=== PATIENT | male | born 1935 | race Caucasian/White ===

== ENCOUNTER 2018-08-10 21:01 | Emergency (ER) | payer MEDICARE ==
[~2018-08-10] VITALS: Ht 188 cm; Wt 120.2 kg
--- OUTSIDE RECORDS SUMMARY | 2018-08-10 21:08 | XMS REPORT | Continuity of Care Document ---
Author Organization Unknown Address Unknown Allergies There is no data. Medications There is no data. Problems There is no data. Procedures There is no data. Results There is no data. Encounters ACCT No. Visit Date/Time Discharge Status Pt. Type Provider Facility Loc./Unit Complaint [id number] 08/09/2018 10:00:00 [facility]
[2018-08-10] MEDS ORDERED: AMOX-358 PO (21:28)
--- NOTE | 2018-08-10 21:29 | ED Integumentary General ---
General Chief Complaint: Skin/Wound Problems Stated Complaint: RIGHT QUEZADA SWOLLEN Source: patient Exam Limitations: no limitations History of Present Illness Date Seen by Provider: Aug 10, 2018 Time Seen by Provider: 21:24 Initial Comments Chronic scab and redness to the right anterior mid lower leg. This has been present since 2010. It became more red and somewhat tender today. No systemic symptoms such as fevers or chills. This is confined to the anterior leg, nothing posterior. States that he had this once before, they called cellulitis" he was treated with antibiotics and states that he got better. Timing/Duration: constant Severity: moderate Location: none Possible Cause: no cause identified Associated Symptoms: denies symptoms Allergies and Home Medications Allergies Coded Allergies: Sulfa (Sulfonamide Antibiotics) (Verified Allergy, Unknown, 08/10/18) Home Medications Amoxicillin/Potassium Clav 1 Each Tablet, 1 EACH PO BID Prescribed by: CLARA HALL on 08/10/182127 Patient Home Medication List Home Medication List Reviewed: Yes Review of Systems Review of Systems Constitutional: see HPI; No chills, No fever EENTM: see HPI Respiratory: no symptoms reported Cardiovascular: no symptoms reported Genitourinary: no symptoms reported Musculoskeletal: no symptoms reported Skin: see HPI Psychiatric/Neurological: No Symptoms Reported Endocrine: No Symptoms Reported Hematologic/Lymphatic: No Symptoms Reported Past Vrmgyic-Fldvsg-Tbufkw Hx Patient Social History Alcohol Use: Denies Use Recreational Drug Use: No Smoking Status: Never a Smoker Recent Foreign Travel: No Contact w/Someone Who Travel: No Recent Hopitalizations: No Seasonal Allergies Seasonal Allergies: No Past Medical History Surgeries: No Respiratory: Yes Cardiac: No Neurological: No Genitourinary: No Gastrointestinal: No Musculoskeletal: No Endocrine: No HEENT: No Cancer: No Psychosocial: No Integumentary: No Physical Exam Vital Signs Vital Signs - First Documented 08/10/18 08/10/18 21:21 21:54 Temp 98.1 Pulse 75 Resp 18 B/P (MAP) 172/87 (115) Pulse Ox 99 Capillary Refill : General Appearance: WD/WN, no apparent distress HEENT: PERRL/EOMI, normal ENT inspection Respiratory: no respiratory distress, no accessory muscle use Extremities: normal range of motion, non-tender, other (to the right anterior lower leg is a quarter sized area of scab without any open wounds or drainage, no fluctuance. Surrounding this is an area of slight erythema extending down the anteromedial right leg) Neurologic/Psychiatric: alert, normal mood/affect, oriented x 3 Skin: normal color, warm/dry Skin Problem Character: erythema Progress/Results/Core Measures Results/Orders My Orders Orders - CLARA HALL APRN Ceftriaxone For Im Use (Rocephin For Im (08/10/18 21:30) Lidocaine 1% Inj 20 Ml (Xylocaine 1% Inj (08/10/18 21:30) Vital Signs/I&O 08/10/18 08/10/18 21:21 21:54 Temp 98.1 98.1 Pulse 75 75 Resp 18 18 B/P (MAP) 172/87 (115) 172/87 (115) Pulse Ox 99 Departure Impression Primary Impression: Cellulitis Qualified Codes: L03.115 - Cellulitis of right lower limb Disposition: HOME, SELF-CARE Condition: Stable Departure-Patient Inst. Decision time for Depature: 21:27 Referrals: NO,LOCAL PHYSICIAN (PCP/Family) Primary Care Physician Patient Instructions: Cellulitis (Skin Infection), Adult (DC) Add. Discharge Instructions: 1. Return to ER for any fevers or worsening symptoms 2. Go home and elevate the foot as much as possible. He certainly you call your doctor on Sunday to make an appointment to be seen for follow-up. All discharge instructions reviewed with patient and/or family. Voiced understanding. Scripts Amoxicillin/Potassium Clav (Augmentin 875-125 Tablet) 1 Each Tablet 1 EACH PO BID, #14 TAB 0 Refills Prov: CLARA HALL APRN 08/10/18 Images Extremities-Lower 1 - Cellulitis CLARA HALL APRN Aug 10, 2018 21:29
[2018-08-10] MEDS ORDERED: cefTRIAXone 1,000 MG/2.86 ml vial (IM ONLY) IM SCH (21:30)
[2018-08-10] MEDS ORDERED: LIDOCAINE 1% INJ 20 ML 20 ML VIAL INJ ONE (21:30)
[2018-08-10 21:54] VITALS: BP 172/87
== END 2018-08-10 21:54 | disposition home or self-care (01) ==
LOC: ER 21:04
DX: L03.115 Cellulitis of right lower limb (principal); Z88.2 Allergy status to sulfonamides
CPT/HCPCS: 96372; 99284

== ENCOUNTER 2018-08-25 09:29 | Emergency (ER) | payer MEDICARE ==
[~2018-08-25] VITALS: Ht 182.9 cm; Wt 117.9 kg
[~2018-08-25 09:29] MED LIST: AMOX-358 PO
--- OUTSIDE RECORDS SUMMARY | 2018-08-25 09:33 | XMS REPORT | Continuity of Care Document ---
Author Organization Unknown Address Unknown Allergies There is no data. Medications There is no data. Problems There is no data. Procedures There is no data. Results There is no data. Encounters ACCT No. Visit Date/Time Discharge Status Pt. Type Provider Facility Loc./Unit Complaint [id number] 08/16/2018 10:00:00 08/16/2018 23:59:59 C[facility]
[2018-08-25] MEDS ORDERED: MECLIZINE 25 MG (ANTIVERT) TAB PO ONE (10:15)
--- NOTE | 2018-08-25 10:15 | ED Neurological Problem ---
General Chief Complaint: Dizziness/Syncope Stated Complaint: DIZZY Nursing Triage Note: PT BROUGHT IN BY EMS FROM HOME WITH COMPLAIN OF DIZZINESS. PT STATES HE WOKE UP WITH DIZZINESS THIS AM. Nursing Sepsis Screen: No Definite Risk Source: patient Exam Limitations: no limitations History of Present Illness Date Seen by Provider: Aug 25, 2018 Time Seen by Provider: 09:45 Initial Comments Patient presents to ER by EMS with chief complaint that he got up to go the bathroom and was walking down the barber and felt his balance was off and that the room was moving. He did not fall nor strike his head. He says had this several times at his life and the past that gave him a tablet until it is in her ear dysfunction. No history of stroke, blood thinners. No weakness numbness tingling slurred speech facial droop. His plan was to go to [place] today and he is daughter but he does not feel like he could drive and is why he called EMS. He does have a history of multiple myeloma status post chemotherapy. 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 No cough shortness of breath fever chills nausea vomiting diarrhea or constipation. He has a history of chronic neck pain. Allergies and Home Medications Allergies Coded Allergies: Sulfa (Sulfonamide Antibiotics) (Verified Allergy, Unknown, 08/10/18) Home Medications Amoxicillin/Potassium Clav 1 Each Tablet, 1 EACH PO BID Prescribed by: CLARA HALL on 08/10/181 Patient Home Medication List Home Medication List Reviewed: Yes Review of Systems Review of Systems Constitutional: No chills, No diaphoresis Eyes: Denies Blindness, Denies Blurred Vision Ears, Nose, Mouth, Throat: denies ear pain, denies ear discharge Respiratory: No cough, No short of breath Cardiovascular: No chest pain, No edema Gastrointestinal: No abdominal pain, No nausea Genitourinary: No discharge, No dysuria Past Obtqfvn-Ztyvet-Juzqxz Hx Patient Social History Alcohol Use: Denies Use Recreational Drug Use: No Smoking Status: Former Smoker Recent Foreign Travel: No Contact w/Someone Who Travel: No Recent Infectious Disease Expo: No Recent Hopitalizations: No Immunizations Up To Date Tetanus Booster (TDap): Unknown Seasonal Allergies Seasonal Allergies: No Past Medical History Surgeries: No Respiratory: Yes (INTERSTITAL LUNG DISEASE) Cardiac: Yes Hypertension Neurological: No Genitourinary: No Gastrointestinal: No Musculoskeletal: No Endocrine: No HEENT: No Cancer: Yes (MULTIPLE MYELOMA) Psychosocial: No Integumentary: No Physical Exam Vital Signs Vital Signs - First Documented 08/25/18 09:29 Temp 97.1 Pulse 75 Resp 16 B/P (MAP) 178/83 (114) Pulse Ox 98 O2 Delivery Room Air Capillary Refill : Less Than 3 Seconds Height, Weight, BMI Height: 6'0" Weight: 260lbs. oz. 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 tested, no motor/sensory deficits, alert, normal mood/affect, oriented x 3, other (NIH 0) Crainal Nerves: normal hearing, normal speech, PERRL, other (head impulse, test of skew and nystagmus negative) Motor/Sensory: no motor deficit, no sensory deficit, no pronator drift Skin: normal color, warm/dry Progress/Results/Core Measures Results/Orders Lab Results Laboratory Tests Test 08/25/18 09:40 Range/Units White Blood Count 7.5 4.3-11.0 10^3/uL Red Blood Count 4.11 L 4.35-5.85 10^6/uL Hemoglobin 12.2 L 13.3-17.7 G/DL Hematocrit 38 L 40-54 % Mean Corpuscular Volume 93 80-99 FL Mean Corpuscular Hemoglobin 30 25-34 PG Mean Corpuscular Hemoglobin Concent 32 32-36 G/DL Red Cell Distribution Width 14.3 10.0-14.5 % Platelet Count 215 130-400 10^3/uL Mean Platelet Volume 11.1 H 7.4-10.4 FL Neutrophils (%) (Auto) 71 42-75 % Lymphocytes (%) (Auto) 16 12-44 % Monocytes (%) (Auto) 8 0-12 % Eosinophils (%) (Auto) 4 0-10 % Basophils (%) (Auto) 1 0-10 % Neutrophils # (Auto) 5.3 1.8-7.8 X 10^3 Lymphocytes # (Auto) 1.2 1.0-4.0 X 10^3 Monocytes # (Auto) 0.6 0.0-1.0 X 10^3 Eosinophils # (Auto) 0.3 0.0-0.3 10^3/uL Basophils # (Auto) 0.0 0.0-0.1 10^3/uL Sodium Level 140 135-145 MMOL/L Potassium Level 3.7 3.6-5.0 MMOL/L Chloride Level 107 98-107 MMOL/L Carbon Dioxide Level 25 21-32 MMOL/L Anion Gap 8 5-14 MMOL/L Blood Urea Nitrogen 15 7-18 MG/DL Creatinine 0.78 0.60-1.30 MG/DL Estimat Glomerular Filtration Rate > 60 BUN/Creatinine Ratio 19 Glucose Level 151 H 70-105 MG/DL Calcium Level 8.8 8.5-10.1 MG/DL Corrected Calcium 9.0 8.5-10.1 MG/DL Total Bilirubin 0.6 0.1-1.0 MG/DL Aspartate Amino Transf (AST/SGOT) 11 5-34 U/L Alanine Aminotransferase (ALT/SGPT) 12 0-55 U/L Alkaline Phosphatase 54 40-136 U/L C-Reactive Protein High Sensitivity 0.72 H 0.00-0.50 MG/DL Total Protein 7.3 6.4-8.2 GM/DL Albumin 3.7 3.2-4.5 GM/DL My Orders Orders - ABNER PHELAN Ekg Tracing (08/25/18 10:05) Meclizine Tablet (Antivert Tablet) (08/25/18 10:15) Cbc With Automated Diff (08/25/18 10:24) Comprehensive Metabolic Panel (08/25/18 10:24) Hs C Reactive Protein (08/25/18 10:24) Medications Given in ED Current Medications Medications Dose Ordered Sig/Dao Route Start Time Stop Time Status Last Admin Dose Admin Meclizine HCl 25 mg ONCE ONCE PO 08/25/18 10:15 08/25/18 10:16 DC 08/25/18 10:15 25 MG Vital Signs/I&O 08/25/18 09:29 Temp 97.1 Pulse 75 Resp 16 B/P (MAP) 178/83 (114) Pulse Ox 98 O2 Delivery Room Air Blood Pressure Mean: 114 Progress Progress Note #1: Time: 10:19 Progress Note Carmelita-Hallpike was positive for re-creates his symptoms on the right side, Not on the left. Plan is to give meclizine and see if his symptoms improve almost to go home. We will teach him some Tj's maneuvers. If we cannot get his symptoms under control then we may consider an observation stay. To that end we'll obtain some basic labs EKG. Progress Note #2: Time: 11:10 Progress Note The patient has experienced moderate improvement in his symptoms after the meclizine. He does not feel like he needs to stay in the hospital and would like to try and go home. He's going to work on a ride. We'll provide him a prescription and encourage him to follow-up with primary care for outpatient management. The patient says he has an appointment at pending [facility] to [facility] to establish care but has not been seen yet. Initial ECG Impression Date: Aug 25, 2018 Initial ECG Impression Time: 09:37 Initial ECG Rate: 77 Initial ECG Rhythm: Normal Sinus Initial ECG Intervals: Normal Initial ECG Impression: Normal Comment No ST elevation or depression. Departure Impression Primary Impression: Benign paroxysmal positional vertigo of right ear Disposition: 01 HOME, SELF-CARE Condition: Stable Departure-Patient Inst. Decision time for Depature: 11:11 Referrals: NO,LOCAL PHYSICIAN (PCP/Family) Primary Care Physician Patient Instructions: Vertigo (a Type of Dizziness) (DC), Vestibular Exercises Add. Discharge Instructions: Every time you feel dizziness you should do 10 sets of the Tj's maneuvers as outlined in the handout. You may also take a tablet of meclizine every 6 hours as needed for dizziness. Follow-up with primary care for continued outpatient management. All discharge instructions reviewed with patient and/or family. Voiced understanding. Scripts Meclizine HCl (Meclizine HCl) 25 Mg Tablet 25 MG PO Q6H PRN for DIZZINESS, #20 TAB 0 Refills Prov: ABNER PHELAN 08/25/18 ABNER PHELAN Aug 25, 2018 10:15
[2018-08-25 10:39] LABS: BASOPHILS % (AUTO) 1 % (0-10); EOSINOPHILS # (AUTO) 0.3 10^3/uL (0.0-0.3); EOSINOPHILS % (AUTO) 4 % (0-10); HEMATOCRIT 38 % (40-54); HEMOGLOBIN 12.2 G/DL (13.3-17.7); LYMPHOCYTES # (AUTO) 1.2 X 10^3 (1.0-4.0); LYMPHOCYTES % (AUTO) 16 % (12-44); MEAN CORPUSCULAR HEMOGLOBIN 30 PG (25-34); MEAN CORPUSCULAR HGB CONC 32 G/DL (32-36); MEAN CORPUSCULAR VOLUME 93 FL (80-99); MEAN PLATELET VOLUME 11.1 FL (7.4-10.4); MONOCYTES # (AUTO) 0.6 X 10^3 (0.0-1.0); MONOCYTES % (AUTO) 8 % (0-12); NEUTROPHILS # (AUTO) 5.3 X 10^3 (1.8-7.8); NEUTROPHILS % (AUTO) 71 % (42-75); PLATELET COUNT 215 10^3/uL (130-400); RED CELL DISTRIBUTION WIDTH 14.3 % (10.0-14.5); WHITE BLOOD COUNT 7.5 10^3/uL (4.3-11.0)
[2018-08-25 10:53] LABS: ALANINE AMINOTRANSFERASE 12 U/L (0-55); ALBUMIN 3.7 GM/DL (3.2-4.5); ALKALINE PHOSPHATASE 54 U/L (40-136); BILIRUBIN,TOTAL 0.6 MG/DL (0.1-1.0); BUN/CREATININE RATIO 19; CALCIUM 8.8 MG/DL (8.5-10.1); CARBON DIOXIDE 25 MMOL/L (21-32); CHLORIDE 107 MMOL/L (98-107); CREATININE SERUM 0.78 MG/DL (0.60-1.30); GFR ESTIMATED > 60; GLUCOSE 151 MG/DL (70-105); POTASSIUM 3.7 MMOL/L (3.6-5.0); SODIUM 140 MMOL/L (135-145); TOTAL PROTEIN 7.3 GM/DL (6.4-8.2)
[2018-08-25] MEDS ORDERED: MECL-106 PO (11:19)
[2018-08-25 11:33] VITALS: BP 144/110
== END 2018-08-25 11:34 | disposition home or self-care (01) ==
LOC: EDUNIT# 09:29 → ER 09:30
DX: H81.11 Benign paroxysmal vertigo, right ear (principal); I10 Essential (primary) hypertension; Z87.891 Personal history of nicotine dependence; Z88.2 Allergy status to sulfonamides; Z85.820 Personal history of malignant melanoma of skin; Z85.828 Personal history of other malignant neoplasm of skin
CPT/HCPCS: 36415; 80053; 85025; 86141; 93005

== ENCOUNTER 2018-09-18 09:02 | Emergency (ER) | payer MEDICARE ==
[~2018-09-18] VITALS: Ht 190.5 cm; Wt 99.8 kg
[~2018-09-18 09:02] MED LIST changes: +MECL-106 PO
--- OUTSIDE RECORDS SUMMARY | 2018-09-18 09:06 | XMS REPORT | Continuity of Care Document ---
Author Organization Unknown Address Unknown Allergies There is no data. Medications There is no data. Problems There is no data. Procedures There is no data. Results There is no data. Encounters ACCT No. Visit Date/Time Discharge Status Pt. Type Provider Facility Loc./Unit Complaint [id number] 09/04/2018 11:00:00 09/04/2018 23:59:59 CLS Outpatient JILLIAN VELA LAC [facility]
[2018-09-18] MEDS ORDERED: NF-CIPDEC LEFT EAR (09:29)
--- NOTE | 2018-09-18 09:32 | ED EENT ---
History of Present Illness General Chief Complaint: Ear Problems Stated Complaint: BLOOD IN L EAR Nursing Triage Note: Pt ambulates to Rm 5 with reports of a scant amount of bloody discharge from left ear. Pt reports this started last night when he was cleaning his ear with a paper clip. Pt denies any pain in that ear at this time. Source: patient Exam Limitations: no limitations History of Present Illness Date Seen by Provider: Sep 18, 2018 Time Seen by Provider: 09:08 Initial Comments This 83-year-old gentleman presents to the emergency room with complaints of left ear pain and bleeding from the left ear after he attempted to remove a cerumen impaction with a paper clip. He suffers from cerumen impaction often. He reports he used the loop of the paper clip and not sharp and. Nonetheless he has caused trauma to his ear. He has no local provider and is transient at this time. He is presently living in a hotel. Allergies and Home Medications Allergies Coded Allergies: Sulfa (Sulfonamide Antibiotics) (Verified Allergy, Unknown, 08/10/18) Home Medications Amoxicillin/Potassium Clav 1 Each Tablet, 1 EACH PO BID Prescribed by: CLARA HALL on 08/10/182127 Ciprofloxacin HCl/Dexameth 7.5 Ml Soln, 4 DROPS LEFT EAR BID Prescribed by: MARY GOEL on 09/18/18 0929 Meclizine HCl 25 Mg Tablet, 25 MG PO Q6H PRN for DIZZINESS Prescribed by: ABNER PHELAN on 08/25/18 1119 Patient Home Medication List Home Medication List Reviewed: Yes Review of Systems Review of Systems Constitutional: no symptoms reported Eyes: No Symptoms Reported Ears: See HPI Nose: no symptoms reported Mouth: no symptoms reported Throat: no symptoms reported Respiratory: no symptoms reported Cardiovascular: no symptoms reported Gastrointestinal: no symptoms reported Musculoskeletal: no symptoms reported Skin: no symptoms reported Neurological: No Symptoms Reported Past Weiaxlp-Butimu-Bjbqrs Hx Past Med/Social Hx: Reviewed Nursing Past Med/Soc Hx Patient Social History Alcohol Use: Denies Use Recreational Drug Use: No Smoking Status: Never a Smoker Recent Foreign Travel: No Contact w/Someone Who Travel: No Recent Infectious Disease Expo: No Recent Hopitalizations: No Physical Abuse: No Sexual Abuse: No Mistreated: No Fear: No Immunizations Up To Date Tetanus Booster (TDap): Unknown Seasonal Allergies Seasonal Allergies: No Past Medical History Surgeries: No Respiratory: Yes (INTERSTITAL LUNG DISEASE, wears supplemental oxygen) Cardiac: Yes Hypertension Neurological: No Genitourinary: No Gastrointestinal: No Musculoskeletal: No Endocrine: No HEENT: No Cancer: Yes (MULTIPLE MYELOMA) Psychosocial: No Integumentary: No Physical Exam Vital Signs Vital Signs - First Documented 09/18/18 09:02 Temp 97.3 Pulse 89 Resp 18 B/P (MAP) 92/ Pulse Ox 97 O2 Delivery Nasal Cannula O2 Flow Rate 187.00 Height, Weight, BMI Height: 6'3.00" Weight: 220lbs. oz. 99.806854dg; BMI Method:Stated General Appearance: WD/WN, no apparent distress Eyes: bilateral eye normal inspection, bilateral eye PERRL, bilateral eye EOMI Ears: bilateral ear other (cerumen impaction bilaterally. Left ear canal is edematous and erythematous with a small abrasion on the posterior aspect that is no longer bleeding. 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 He requested assistance in setting up a follow-up appointment. I scheduled an appointment for him at Dr. Griffin's office. See discharge instructions. Departure Impression Primary Impression: Trauma of ear canal Qualified Codes: S09.91XA - Unspecified injury of ear, initial encounter Additional Impressions: Otitis externa of left ear Qualified Codes: H60.502 - Unspecified acute noninfective otitis externa, left ear Impacted cerumen of left ear Disposition: 01 HOME, SELF-CARE Condition: Improved Departure-Patient Inst. Referrals: DOMO GRIFFIN MD [facility]/JANEEN MIGUEL MD NO,LOCAL PHYSICIAN (PCP) Primary Care Physician TRISHA PACE MD Patient Instructions: Ear Wax Impaction Add. Discharge Instructions: Use the Ciprodex eardrops as prescribed. Lay on your right side with your left ear up when applying the ear drops. Stay in this position for at least 5 minutes to allow the drops to soak into your ear. Return to care if you have worsening symptoms. Follow-up in Dr. Griffin's office (ear, nose and throat clinic) on September 25 at 9:45 in the morning. Please call their office to confirm the appointment. All discharge instructions reviewed with patient and/or family. Voiced understanding. Scripts Ciprofloxacin HCl/Dexameth (Ciprodex Otic Suspension) 7.5 Ml Soln 4 DROPS LEFT EAR BID, #1 EA Prov: MARY SHERMAN MD 09/18/18 Copy Copies To 1: DOMO GRIFFIN MD, JOSHUA T MD Sep 18, 2018 09:32
[2018-09-18 09:45] VITALS: BP 86/86
== END 2018-09-18 09:40 | disposition home or self-care (01) ==
LOC: EDUNIT# 09:02 → ER 09:03
DX: S09.92XA Unspecified injury of nose, initial encounter (principal); H60.92 Unspecified otitis externa, left ear; H61.22 Impacted cerumen, left ear; I10 Essential (primary) hypertension; Z85.79 Personal history of other malignant neoplasms of lymphoid, hematopoietic and related tissues; Z99.81 Dependence on supplemental oxygen; Z88.2 Allergy status to sulfonamides; W26.8XXA Contact with other sharp object(s), not elsewhere classified, initial encounter; Y92.59 Other trade areas as the place of occurrence of the external cause
CPT/HCPCS: 99282

== ENCOUNTER 2018-11-12 09:19 | Emergency (ER) | payer MEDICARE ==
[~2018-11-12] VITALS: Ht 185.4 cm; Wt 122.7 kg
[~2018-11-12 09:19] MED LIST changes: +NF-CIPDEC LEFT EAR
[2018-11-12] MEDS ORDERED: AMLO5TAB9 (09:48)
[2018-11-12] MEDS ORDERED: OXYC15TA73 (09:49)
[2018-11-12] MEDS ORDERED: NS IV 500 ML 500 ML IV ONE (10:14)
--- NOTE | 2018-11-12 10:32 | ED Back Pain ---
General Chief Complaint: Back Problems Stated Complaint: LOWER BACK PAIN Nursing Triage Note: C/O LOW BACK PAINX 1WEEK NO INJURY REPORTS THAT OXYCONTIN NOT HELPING Nursing Sepsis Screen: No Definite Risk Source of Information: Patient Exam Limitations: No Limitations (MARY MELO STUDENT) History of Present Illness Date Seen by Provider: Nov 12, 2018 Time Seen by Provider: 10:00 Initial Comments The patient is an 83 y/o male here with a chief complaint of low back pain. He states that the pain began about a week ago and has not improved. He reports that the pain is 7-8/10, sharp and is increased with movement. He admits to difficulty with urination which he said is chronic. He does admit to decreased urine output lately. He denies any nausea, vomiting, or fevers. He denies any abdominal pain. The patient reports a history of multiple myeloma which is stable since 2009. The patient also reports a history of chronic constipation but states that he had a bowel movement yesterday. Timing/Duration: 6-7 Days Severity: Moderate Pain/Injury Location: Back Method of Injury: Unknown Modifying Factors: Worse With Movement (MARY MELO STUDENT) Location: Paraspinous Muscles Timing/Duration: 6-7 Days Severity: Moderate Pain/Injury Location: Back Associated Symptoms: muscle spasms; No fever, No weakness; lower back pain; No loss of bladder control, No loss of bowel control (RENA PARRY MD) Allergies and Home Medications Allergies Coded Allergies: Sulfa (Sulfonamide Antibiotics) (Verified Allergy, Unknown, 08/10/18) Home Medications Meclizine HCl 25 Mg Tablet, 25 MG PO Q6H PRN for DIZZINESS Prescribed by: ABNER PHELAN on 08/25/18 1119 Patient Home Medication List Home Medication List Reviewed: Yes (RENA PARRY MD) Review of Systems Constitutional: No fever, No malaise EENTM: No blurred vision, No double vision Respiratory: No cough, No short of breath Cardiovascular: No chest pain, No palpitations Genitourinary: decreased output, hesitancy Musculoskeletal: back pain (MARY MELO STUDENT) All Other Systems Reviewed Negative Unless Noted: Yes (RENA PARRY MD) Past Imdhdmk-Ibxtoj-Ikyino Hx Past Med/Social Hx: Reviewed Nursing Past Med/Soc Hx (RENA PARRY MD) Patient Social History Alcohol Use: Denies Use Recreational Drug Use: No Recent Foreign Travel: No Contact w/Someone Who Travel: No Recent Infectious Disease Expo: No Recent Hopitalizations: No (MARY MELO STUDENT) Immunizations Up To Date Tetanus Booster (TDap): Unknown (MARY MELO STUDENT) Seasonal Allergies Seasonal Allergies: No (MARY MELO) Past Medical History Surgeries: Yes Eye Surgery, Orthopedic Respiratory: Yes (INTERSTITAL LUNG DISEASE, wears supplemental oxygen) Cardiac: Yes Hypertension Neurological: No Genitourinary: No Gastrointestinal: No Musculoskeletal: No Endocrine: No HEENT: No Cancer: Yes (MULTIPLE MYELOMA) Did You Recieve Any Treatments: Yes What Type of Treatment Did You: Chemotherapy, Radiation Psychosocial: No Integumentary: No (MARY MELO STUDENT) Family Medical History Reviewed Nursing Family Hx (RENA PARRY MD) No Pertinent Family Hx (RENA PARRY MD) Physical Exam Vital Signs Vital Signs - First Documented 11/12/18 09:22 Temp 37.2 Pulse 78 Resp 18 B/P (MAP) 162/73 (102) Pulse Ox 96 O2 Delivery Room Air (RENA PARRY MD) Vital Signs Capillary Refill : Less Than 3 Seconds (MARY MELO STUDENT) Height, Weight, BMI Height: 6'3.00" Weight: 220lbs. oz. 99.994297bx; 35.00 BMI Method:Stated General Appearance: No Apparent Distress, WD/WN Cardiovascular: Regular Rate, Rhythm, No Edema, Systolic Murmur Respiratory: Chest Non Tender, Lungs Clear, Normal Breath Sounds Back: CVA Tenderness (R) Neurologic/Psychiatric: Alert, Oriented x3, No Motor/Sensory Deficits Skin: Normal Color (MARY MELO STUDENT) General Appearance: No Apparent Distress, WD/WN Cardiovascular: Regular Rate, Rhythm, No Edema Respiratory: Lungs Clear, Normal Breath Sounds Back: No Vertebral Tenderness; Other (right side paraspinous pain) Neurologic/Psychiatric: Alert, Oriented x3 Skin: Normal Color, Warm/Dry (RENA PARRY MD) Progress/Results/Core Measures Results/Orders Lab Results Laboratory Tests Test 11/12/18 10:19 Range/Units White Blood Count 5.3 4.3-11.0 10^3/uL Red Blood Count 4.22 L 4.35-5.85 10^6/uL Hemoglobin 12.7 L 13.3-17.7 G/DL Hematocrit 40 40-54 % Mean Corpuscular Volume 95 80-99 FL Mean Corpuscular Hemoglobin 30 25-34 PG Mean Corpuscular Hemoglobin Concent 32 32-36 G/DL Red Cell Distribution Width 14.2 10.0-14.5 % Platelet Count 164 130-400 10^3/uL Mean Platelet Volume 9.8 7.4-10.4 FL Neutrophils (%) (Auto) 70 42-75 % Lymphocytes (%) (Auto) 17 12-44 % Monocytes (%) (Auto) 8 0-12 % Eosinophils (%) (Auto) 4 0-10 % Basophils (%) (Auto) 1 0-10 % Neutrophils # (Auto) 3.7 1.8-7.8 X 10^3 Lymphocytes # (Auto) 0.9 L 1.0-4.0 X 10^3 Monocytes # (Auto) 0.4 0.0-1.0 X 10^3 Eosinophils # (Auto) 0.2 0.0-0.3 10^3/uL Basophils # (Auto) 0.1 0.0-0.1 10^3/uL Urine Color YELLOW Urine Clarity SLIGHTLY CLOUDY Urine pH 5 5-9 Urine Specific [place] 1.025 H 1.016-1.022 Urine Protein 2+ H NEGATIVE Urine Glucose (UA) NEGATIVE NEGATIVE Urine Ketones NEGATIVE NEGATIVE Urine Nitrite NEGATIVE NEGATIVE Urine Bilirubin NEGATIVE NEGATIVE Urine Urobilinogen NORMAL NORMAL MG/DL Urine Leukocyte Esterase NEGATIVE NEGATIVE Urine RBC (Auto) NEGATIVE NEGATIVE Urine RBC NONE /HPF Urine WBC NONE /HPF Urine Squamous Epithelial Cells NONE /HPF Urine Crystals PRESENT H /LPF Urine Calcium Oxalate Crystals FEW H /LPF Urine Bacteria NEGATIVE /HPF Urine Casts NONE /LPF Urine Mucus NEGATIVE /LPF Urine Culture Indicated NO Sodium Level 142 135-145 MMOL/L Potassium Level 3.9 3.6-5.0 MMOL/L Chloride Level 109 H 98-107 MMOL/L Carbon Dioxide Level 26 21-32 MMOL/L Anion Gap 7 5-14 MMOL/L Blood Urea Nitrogen 24 H 7-18 MG/DL Creatinine 0.88 0.60-1.30 MG/DL Estimat Glomerular Filtration Rate > 60 BUN/Creatinine Ratio 27 Glucose Level 158 H 70-105 MG/DL Calcium Level 8.6 8.5-10.1 MG/DL Corrected Calcium 8.8 8.5-10.1 MG/DL Total Bilirubin 0.4 0.1-1.0 MG/DL Aspartate Amino Transf (AST/SGOT) 12 5-34 U/L Alanine Aminotransferase (ALT/SGPT) 11 0-55 U/L Alkaline Phosphatase 50 40-136 U/L C-Reactive Protein High Sensitivity 0.43 0.00-0.50 MG/DL Total Protein 7.1 6.4-8.2 GM/DL Albumin 3.7 3.2-4.5 GM/DL (RENA PARRY MD) My Orders Orders - RENA PARRY MD Ed Iv/Invasive Line Start (11/12/18 10:14) Ns Iv 500 Ml (Sodium Chloride 0.9%) (11/12/18 10:14) Cbc With Automated Diff (11/12/18 10:21) Comprehensive Metabolic Panel (11/12/18 10:21) Hs C Reactive Protein (11/12/18 10:21) Ua Culture If Indicated (11/12/18 10:21) Ct Abdomen/Pelvis Wo (11/12/18 12:02) Hydrocodone/Apap 7.5/325 Tab (Lortab 7. (11/12/18 15:10) Ketorolac Injection (Toradol Injection) (11/12/18 15:10) (RENA PARRY MD) Medications Given in ED Current Medications Medications Dose Ordered Sig/Dao Route Start Time Stop Time Status Last Admin Dose Admin Sodium Chloride 500 ml @ 0 mls/hr Q0M ONCE IV 11/12/18 10:14 11/12/18 10:15 DC 11/12/18 10:34 500 MLS/HR (RENA PARRY MD) Vital Signs/I&O 11/12/18 09:22 Temp 37.2 Pulse 78 Resp 18 B/P (MAP) 162/73 (102) Pulse Ox 96 O2 Delivery Room Air (RENA PARRY MD) Blood Pressure Mean: 102 Progress Progress Note : Time: 10:05 Progress Note The patient is resting in mild discomfort in the exam room. Initial lab analysis will consist of CBC, CMP, CRP, and UA. (MARY MELO MED STUDENT) Progress Note : Progress Note I have seen and evaluated the patient and agree with above except as indicated. I Have directed the plan of care. Patient very concerned due to history of multiple myeloma. IV, labs and UA ordered. CT abdomen and pelvis without contrast ordered. Patient initially declined pain medicine. Monitor patient. 1534: CT results reviewed. Toradol 15 mg IV and Lortab 7.5 mg by mouth ordered. Patient now admits that he has been moving and had to do a lot of lifting recently. This seems to be more related to musculoskeletal type pain as everything else seems to be negative at this point. Patient was appreciative of the findings and workup. Discharged home with return precautions. Patient verbalize understanding instructions and agreement with plan. (RENA PARRY MD) Departure Impression Primary Impression: Back strain Qualified Codes: S39.012A - Strain of muscle, fascia and tendon of lower back, initial encounter Disposition: 01 HOME, SELF-CARE Condition: Improved Departure-Patient Inst. Decision time for Depature: 15:35 (RENA PARRY MD) Referrals: NO,LOCAL PHYSICIAN (PCP/Family) Primary Care Physician Patient Instructions: Low Back Pain (DC), Muscle Strain (DC) Add. Discharge Instructions: All discharge instructions reviewed with patient and/or family. Voiced understanding. Continue home medications as previously prescribed. You may take ibuprofen 400 mg every 6-8 hours as needed for pain as well as her typical pain regimen. You may use [id number] Icy Hot with lidocaine patches, Aspercreme with lidocaine patches, Salonpas with lidocaine patches or similar items to area of concern per package directions. Return for worse pain, swelling, weakness, difficulty with walking or going to the bathroom or other concerns as needed. MARY MELO MED STUDENT Nov 12, 2018 10:32 RENA PARRY MD Nov 12, 2018 15:37
[2018-11-12 10:33] LABS: BILIRUBIN,URINE NEGATIVE (NEGATIVE); CLARITY,URINE SLIGHTLY CLOUDY; COLOR,URINE YELLOW; GLUCOSE, URINE (UA) NEGATIVE (NEGATIVE); KETONES,URINE NEGATIVE (NEGATIVE); LEUKOCYTE ESTERASE ,URINE NEGATIVE (NEGATIVE); NITRITE,URINE NEGATIVE (NEGATIVE); PH,URINE 5 (5-9); PROTEIN,URINE 2+ (NEGATIVE); UROBILINOGEN,URINE NORMAL (NORMAL)
[2018-11-12 10:36] LABS: BASOPHILS # (AUTO) 0.1 10^3/uL (0.0-0.1); BASOPHILS % (AUTO) 1 % (0-10); EOSINOPHILS # (AUTO) 0.2 10^3/uL (0.0-0.3); EOSINOPHILS % (AUTO) 4 % (0-10); HEMATOCRIT 40 % (40-54); HEMOGLOBIN 12.7 G/DL (13.3-17.7); LYMPHOCYTES # (AUTO) 0.9 X 10^3 (1.0-4.0); LYMPHOCYTES % (AUTO) 17 % (12-44); MEAN CORPUSCULAR HEMOGLOBIN 30 PG (25-34); MEAN CORPUSCULAR HGB CONC 32 G/DL (32-36); MEAN CORPUSCULAR VOLUME 95 FL (80-99); MEAN PLATELET VOLUME 9.8 FL (7.4-10.4); MONOCYTES # (AUTO) 0.4 X 10^3 (0.0-1.0); MONOCYTES % (AUTO) 8 % (0-12); NEUTROPHILS # (AUTO) 3.7 X 10^3 (1.8-7.8); NEUTROPHILS % (AUTO) 70 % (42-75); PLATELET COUNT 164 10^3/uL (130-400); RED CELL DISTRIBUTION WIDTH 14.2 % (10.0-14.5); WHITE BLOOD COUNT 5.3 10^3/uL (4.3-11.0)
[2018-11-12 10:51] LABS: BACTERIA,URINE NEGATIVE /HPF; CALCIUM OXALATE CRYSTALS,UR FEW /LPF
[2018-11-12 10:53] LABS: ALANINE AMINOTRANSFERASE 11 U/L (0-55); ALBUMIN 3.7 GM/DL (3.2-4.5); ALKALINE PHOSPHATASE 50 U/L (40-136); BILIRUBIN,TOTAL 0.4 MG/DL (0.1-1.0); BUN/CREATININE RATIO 27; CALCIUM 8.6 MG/DL (8.5-10.1); CARBON DIOXIDE 26 MMOL/L (21-32); CHLORIDE 109 MMOL/L (98-107); CREATININE SERUM 0.88 MG/DL (0.60-1.30); GFR ESTIMATED > 60; GLUCOSE 158 MG/DL (70-105); POTASSIUM 3.9 MMOL/L (3.6-5.0); SODIUM 142 MMOL/L (135-145); TOTAL PROTEIN 7.1 GM/DL (6.4-8.2)
--- NOTE | 2018-11-12 12:30 | NUR ---
BLANKETS PLACED BEHINDE HIS BACK TO HELP BACK PAIN.
--- NOTE | 2018-11-12 13:16 | NUR ---
TO CT PER CART.
--- NOTE | 2018-11-12 13:42 | Diagnostic Imaging Report ---
PROCEDURE: CT abdomen and pelvis without contrast. TECHNIQUE: Multiple contiguous axial images were obtained through the abdomen and pelvis without the use of intravenous contrast. Auto Exposure Controls were utilized during the CT exam to meet ALARA standards for radiation dose reduction. INDICATION: Right posterior flank pain. History of melanoma. COMPARISON: None. FINDINGS: There are interstitial opacities in the lung bases, likely chronic fibrotic changes. The heart is upper normal in size. The liver demonstrates no focal lesions on this noncontrast exam. The spleen demonstrates calcified granulomas. The pancreas appears normal. The adrenal glands are normal. The kidneys demonstrate mild cortical thinning, likely age-related. There is no hydronephrosis or hydroureter. The appendix is mildly prominent distally, however there is no periappendiceal fat stranding. No fluid collections are seen. There is no free fluid or free air. There is moderate stool at the cecum. There is diverticulosis of the sigmoid colon without diverticulitis. No acute osseous abnormality is seen. There are degenerative changes throughout the spine. There is diffuse osteopenia. IMPRESSION: 1. No renal calculi or hydronephrosis. 2. Mildly prominent appendix, however there is no adjacent inflammatory change to indicate appendicitis. 3. Colonic diverticulosis without diverticulitis. 4. Interstitial opacities in the lung bases, most likely chronic fibrotic changes. If acute, this could represent a mild edema. Dictated by: Dictated on workstation # [id number]
[2018-11-12] MEDS ORDERED: HYDROcodone/APAP 7.5 MG/325 MG (LORTAB, LORCET PLUS) TABLET PO STA (15:10)
[2018-11-12] MEDS ORDERED: KETOROLAC 30 MG/ML VIAL IVP STA (15:10)
[2018-11-12 15:44] VITALS: BP 202/110
== END 2018-11-12 15:44 | disposition home or self-care (01) ==
LOC: EDUNIT# 09:19 → ER 09:19
DX: S39.012A Strain of muscle, fascia and tendon of lower back, initial encounter (principal); I10 Essential (primary) hypertension; Z87.19 Personal history of other diseases of the digestive system; Z86.2 Personal history of diseases of the blood and blood-forming organs and certain disorders involving the immune mechanism; Z88.2 Allergy status to sulfonamides; Z99.81 Dependence on supplemental oxygen; X50.1XXA Overexertion from prolonged static or awkward postures, initial encounter
CPT/HCPCS: 36415; 74176; 80053; 81000; 85025; 86141

== ENCOUNTER 2019-02-22 09:23 | Emergency (ER) | payer MEDICARE ==
[~2019-02-22] VITALS: Ht 185.4 cm; Wt 115.9 kg
[~2019-02-22 09:23] MED LIST changes: +AMLO5TAB9; +OXYC15TA73
[2019-02-22] MEDS ORDERED: MECLIZINE 25 MG (ANTIVERT) TAB PO ONE (11:15)
--- NOTE | 2019-02-22 11:15 | ED Neurological Problem ---
General Chief Complaint: Dizziness/Syncope Stated Complaint: DIZZY Nursing Triage Note: woke up very dizziy this am and has had problems with blood pressure in past. Takes medication but has been out for aprox one month. denies syncope. Nursing Sepsis Screen: No Definite Risk Source: patient Exam Limitations: no limitations History of Present Illness Date Seen by Provider: Feb 22, 2019 Time Seen by Provider: 10:22 Initial Comments Patient presents to ER by private conveyance with chief complaint of dizziness similar to an episode he felt several months ago. He said he was in the ER seen by this examiner and was taught to do some exercises which helped with his dizzi ness is not had any more episodes until last 2 days. He says is worse when he rolls over or sits up. No history of coronary disease but he has a history of interstitial lung disease on baseline oxygen. He still trying to get established with a new primary care doctor here and [place], [place]. He is not having any fevers, chills but he does have some nasal congestion and ears feeling full which is typical for him with his oxygen usage. Allergies and Home Medications Allergies Coded Allergies: Sulfa (Sulfonamide Antibiotics) (Verified Allergy, Unknown, 08/10/18) Home Medications Meclizine HCl 25 Mg Tablet, 25 MG PO Q6H PRN for DIZZINESS Prescribed by: ABNER PHELAN on 08/25/18 1119 Patient Home Medication List Home Medication List Reviewed: Yes Review of Systems Review of Systems Constitutional: No chills, No diaphoresis Eyes: Denies Blindness, Denies Blurred Vision Ears, Nose, Mouth, Throat: denies ear pain, denies ear discharge Respiratory: No cough, No dyspnea on exertion Cardiovascular: see HPI; No chest pain Gastrointestinal: No abdominal pain, No constipation, No diarrhea, No nausea Genitourinary: No discharge, No dysuria All Other Systems Reviewed Negative Unless Noted: Yes Past Bnuqsmb-Tjuont-Latulb Hx Patient Social History Alcohol Use: Denies Use Recreational Drug Use: No Smoking Status: Never a Smoker Recent Foreign Travel: No Contact w/Someone Who Travel: No Recent Infectious Disease Expo: No Recent Hopitalizations: No Immunizations Up To Date Tetanus Booster (TDap): Unknown Seasonal Allergies Seasonal Allergies: No Past Medical History Surgeries: Yes Eye Surgery, Orthopedic Respiratory: Yes (INTERSTITAL LUNG DISEASE, wears supplemental oxygen) Cardiac: Yes Hypertension Neurological: No Genitourinary: No Gastrointestinal: No Musculoskeletal: No Endocrine: No HEENT: No Cancer: Yes (MULTIPLE MYELOMA) Did You Recieve Any Treatments: Yes What Type of Treatment Did You: Chemotherapy, Radiation Psychosocial: No Integumentary: No Family Medical History No Pertinent Family Hx Physical Exam Vital Signs Vital Signs - First Documented 02/22/19 10:02 Temp 37.0 Pulse 79 B/P (MAP) 201/92 (128) O2 Delivery Nasal Cannula O2 Flow Rate 1.50 Capillary Refill : Less Than 3 Seconds Height, Weight, BMI Height: 6'3.00" Weight: 220lbs. oz. 99.520400pw; 33.00 BMI Method:Stated General Appearance: WD/WN, no apparent distress HEENT: PERRL/EOMI, normal ENT inspection, pharynx normal, TM abnormal (R) (bilateral tympanic membranes white, occluded, mucoid effusion without erythema injection bulging or pain to manipulation.), TM abnormal (L) Neck: full range of motion, normal inspection Respiratory: lungs clear, normal breath sounds, no respiratory distress, no accessory muscle use Cardiovascular: normal peripheral pulses, regular rate, rhythm Peripheral Pulses: 2+ Radial Pulses (R), 2+ Radial Pulses (L) Neurologic/Psychiatric: painter set II-XII nml as tested, no motor/sensory deficits, alert, normal mood/affect, oriented x 3, other (NIH 0. Head impulse, test of skew are all normal. Negative for nystagmus on horizontal gaze.) Crainal Nerves: normal hearing, normal speech, PERRL Coordination/Gait: normal finger to nose, normal gait Motor/Sensory: no motor deficit, no sensory deficit, no pronator drift Skin: normal color, warm/dry Progress/Results/Core Measures Results/Orders Lab Results Laboratory Tests Test 02/22/19 11:46 Range/Units White Blood Count 6.1 4.3-11.0 10^3/uL Red Blood Count 4.38 4.35-5.85 10^6/uL Hemoglobin 13.3 13.3-17.7 G/DL Hematocrit 42 40-54 % Mean Corpuscular Volume 95 80-99 FL Mean Corpuscular Hemoglobin 30 25-34 PG Mean Corpuscular Hemoglobin Concent 32 32-36 G/DL Red Cell Distribution Width 13.5 10.0-14.5 % Platelet Count 195 130-400 10^3/uL Mean Platelet Volume 10.1 7.4-10.4 FL Neutrophils (%) (Auto) 65 42-75 % Lymphocytes (%) (Auto) 19 12-44 % Monocytes (%) (Auto) 10 0-12 % Eosinophils (%) (Auto) 5 0-10 % Basophils (%) (Auto) 1 0-10 % Neutrophils # (Auto) 4.0 1.8-7.8 X 10^3 Lymphocytes # (Auto) 1.1 1.0-4.0 X 10^3 Monocytes # (Auto) 0.6 0.0-1.0 X 10^3 Eosinophils # (Auto) 0.3 0.0-0.3 10^3/uL Basophils # (Auto) 0.1 0.0-0.1 10^3/uL Sodium Level 140 135-145 MMOL/L Potassium Level 4.2 3.6-5.0 MMOL/L Chloride Level 106 98-107 MMOL/L Carbon Dioxide Level 25 21-32 MMOL/L Anion Gap 9 5-14 MMOL/L Blood Urea Nitrogen 25 H 7-18 MG/DL Creatinine 0.93 0.60-1.30 MG/DL Estimat Glomerular Filtration Rate > 60 BUN/Creatinine Ratio 27 Glucose Level 115 H 70-105 MG/DL Calcium Level 9.0 8.5-10.1 MG/DL Corrected Calcium 9.0 8.5-10.1 MG/DL Total Bilirubin 0.2 0.1-1.0 MG/DL Aspartate Amino Transf (AST/SGOT) 11 5-34 U/L Alanine Aminotransferase (ALT/SGPT) 12 0-55 U/L Alkaline Phosphatase 59 40-136 U/L Total Protein 8.1 6.4-8.2 GM/DL Albumin 4.0 3.2-4.5 GM/DL My Orders Orders - ABNER PHELAN Continuous Ekg Monitoring (02/22/19 09:24) Ekg Tracing (02/22/19 09:24) Meclizine Tablet (Antivert Tablet) (02/22/19 11:15) Ct Head Wo (02/22/19 11:14) Cbc With Automated Diff (02/22/19 11:14) Comprehensive Metabolic Panel (02/22/19 11:14) Medications Given in ED Current Medications Medications Dose Ordered Sig/Dao Route Start Time Stop Time Status Last Admin Dose Admin Meclizine HCl 25 mg ONCE ONCE PO 02/22/19 11:15 02/22/19 11:16 DC 02/22/19 11:51 25 MG Vital Signs/I&O 02/22/19 10:02 Temp 37.0 Pulse 79 B/P (MAP) 201/92 (128) O2 Delivery Nasal Cannula O2 Flow Rate 1.50 Blood Pressure Mean: 128 Progress Progress Note : Time: 13:18 Progress Note Unremarkable workup. Orthostatics were normal. No neurologic findings or coronary findings. He does have reproducible vertigo on Carmelita-Hallpike maneuvers. Given a tablet of meclizine which made his symptoms go away and he is sitting up feeling much better now. Plan to put him out with follow-up with a primary care doctor which she can establish with as well as give him some meclizine and reprepped instructions for Tj maneuvers. Initial ECG Impression Date: Feb 22, 2019 Initial ECG Impression Time: 10:58 Initial ECG Rate: 81 Initial ECG Rhythm: Normal Sinus Initial ECG Intervals: Normal Initial ECG Impression: Normal, Nonspecific Changes Comment Normal sinus rhythm without ST elevation or depression. Diagnostic Imaging Diagonstic Imaging: CT (without IV contrast) Plain Films/CT/US/NM/MRI: head Comments NAME: ROSELINE MALIK [facility] REC#: [id number] PT STATUS: REG ER : 1935 PHYSICIAN: ABNER PHELAN MD ADMIT DATE: 02/22/19/ER Draft Date of Exam:02/22/19 CT HEAD WO PROCEDURE: CT head without contrast. TECHNIQUE: Multiple contiguous axial images were obtained through the brain without the use of intravenous contrast. Auto Exposure Controls were utilized during the CT exam to meet ALARA standards for radiation dose reduction. INDICATION: Dizziness and headache. COMPARISON: No prior studies are available for comparison. The ventricles and sulci are consistent with the patient's age. There is no sulcal effacement or midline shift. No acute intra-axial or extra-axial hemorrhage is detected. 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 Cisterns are patent. Visualized paranasal sinuses are clear. IMPRESSION: No acute intracranial process is detected. Dictated on workstation # [id number] Dict: 02/22/19 1126 Trans: 02/22/19 1129 [facility] [id number] Interpreted by: JAYLA VU MD Electronically signed by: Reviewed: Reviewed by Me Departure Impression Primary Impression: Vertigo Additional Impression: Dizziness Disposition: 01 HOME, SELF-CARE Condition: Improved Departure-Patient Inst. Decision time for Depature: 13:20 Referrals: NO,LOCAL PHYSICIAN (PCP/Family) Primary Care Physician Patient Instructions: LOCAL PHYSICIAN LIST, Vertigo (a Type of Dizziness) (DC) Add. Discharge Instructions: Drink plenty of fluids. If you're having dizziness you may take a tablet of meclizine once every 6 hours as needed. You may also perform the maneuvers per the handout. Establish care with a primary care provider. All discharge instructions reviewed with patient and/or family. Voiced understanding. Scripts Amlodipine Besylate (Amlodipine Besylate) 5 Mg Tablet 5 MG PO DAILY for 14 Days, #14 TAB 0 Refills Prov: ABNER PHELAN 02/22/19 Meclizine HCl (Meclizine HCl) 25 Mg Tablet 25 MG PO Q6H PRN for DIZZINESS, #20 TAB 0 Refills Prov: ABNER PHELAN 02/22/19 ABNER PHELAN Feb 22, 2019 11:15
--- NOTE | 2019-02-22 11:29 | Diagnostic Imaging Report ---
PROCEDURE: CT head without contrast. TECHNIQUE: Multiple contiguous axial images were obtained through the brain without the use of intravenous contrast. Auto Exposure Controls were utilized during the CT exam to meet ALARA standards for radiation dose reduction. INDICATION: Dizziness and headache. COMPARISON: No prior studies are available for comparison. The ventricles and sulci are consistent with the patient's age. There is no sulcal effacement or midline shift. No acute intra-axial or extra-axial hemorrhage is detected. 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 Cisterns are patent. Visualized paranasal sinuses are clear. IMPRESSION: No acute intracranial process is detected. Dictated by: Dictated on workstation # [id number]
[2019-02-22 11:52] LABS: BASOPHILS # (AUTO) 0.1 10^3/uL (0.0-0.1); BASOPHILS % (AUTO) 1 % (0-10); EOSINOPHILS # (AUTO) 0.3 10^3/uL (0.0-0.3); EOSINOPHILS % (AUTO) 5 % (0-10); HEMATOCRIT 42 % (40-54); HEMOGLOBIN 13.3 G/DL (13.3-17.7); LYMPHOCYTES # (AUTO) 1.1 X 10^3 (1.0-4.0); LYMPHOCYTES % (AUTO) 19 % (12-44); MEAN CORPUSCULAR HEMOGLOBIN 30 PG (25-34); MEAN CORPUSCULAR HGB CONC 32 G/DL (32-36); MEAN CORPUSCULAR VOLUME 95 FL (80-99); MEAN PLATELET VOLUME 10.1 FL (7.4-10.4); MONOCYTES # (AUTO) 0.6 X 10^3 (0.0-1.0); MONOCYTES % (AUTO) 10 % (0-12); NEUTROPHILS % (AUTO) 65 % (42-75); PLATELET COUNT 195 10^3/uL (130-400); RED CELL DISTRIBUTION WIDTH 13.5 % (10.0-14.5); WHITE BLOOD COUNT 6.1 10^3/uL (4.3-11.0)
[2019-02-22 12:10] LABS: ALANINE AMINOTRANSFERASE 12 U/L (0-55); ALKALINE PHOSPHATASE 59 U/L (40-136); BILIRUBIN,TOTAL 0.2 MG/DL (0.1-1.0); BUN/CREATININE RATIO 27; CARBON DIOXIDE 25 MMOL/L (21-32); CHLORIDE 106 MMOL/L (98-107); CREATININE SERUM 0.93 MG/DL (0.60-1.30); GFR ESTIMATED > 60; GLUCOSE 115 MG/DL (70-105); POTASSIUM 4.2 MMOL/L (3.6-5.0); SODIUM 140 MMOL/L (135-145); TOTAL PROTEIN 8.1 GM/DL (6.4-8.2)
[2019-02-22] MEDS ORDERED: MECL-106 PO (13:22)
[2019-02-22] MEDS ORDERED: AMLO5TAB9 PO (13:22)
[2019-02-22 13:40] VITALS: BP 184/88
== END 2019-02-22 13:40 | disposition home or self-care (01) ==
LOC: EDUNIT# 09:23 → ER 09:24
DX: R42 Dizziness and giddiness (principal); I10 Essential (primary) hypertension; Z88.2 Allergy status to sulfonamides; Z85.79 Personal history of other malignant neoplasms of lymphoid, hematopoietic and related tissues
CPT/HCPCS: 36415; 70450; 80053; 85025; 93005

== ENCOUNTER 2021-10-19 06:14 | Outpatient (CLI) | payer MEDICARE ==
[~2021-10-19] VITALS: Ht 185.4 cm; Wt 122.5 kg
[~2021-10-19 06:14] MED LIST changes: +AMLO-250; +AMLO-250 PO; -AMLO5TAB9; -MECL-106 PO; +MECL-149 PO
[2021-10-19] MEDS ORDERED: HYDR-700 PO (16:40)
[2021-10-19] MEDS ORDERED: SERT-414 PO (16:40)
[2021-10-19] MEDS ORDERED: UMEC1BLS IH (16:40)
[2021-10-19] MEDS ORDERED: SENN-36 PO (16:40)
[2021-10-19] MEDS ORDERED: IRBE1TAB65 PO (16:40)
== END 2021-10-19 16:52 ==
LOC: PREOP 06:14
PROVIDERS: ATTEND Surgery
DX: Z01.818 Encounter for other preprocedural examination (principal); R10.84 Generalized abdominal pain; Z86.010 Personal history of colon polyps

== ENCOUNTER 2021-11-01 12:19 | Day surgery (SDC) | payer MEDICARE ==
[~2021-11-01] VITALS: Ht 185.4 cm; Wt 122.5 kg
[~2021-11-01 12:19] MED LIST changes: +HYDR-700 PO; +IRBE1TAB65 PO; +SENN-36 PO; +SERT-414 PO; +UMEC1BLS IH
[2021-11-01] MEDS ORDERED: LACTATED RINGERS 1,000 ML IV STA (12:32)
[2021-11-01 12:40] VITALS: BP 181/88
--- NOTE | 2021-11-01 13:33 | Progress Note-Pre Operative ---
Pre-Operative Progress Note Date of Available H&P: Oct 17, 2021 Date H&P Reviewed: Nov 01, 2021 Time H&P Reviewed: 13:32 History & Physical: H&P Reviewed, Patient Examed, No changes noted Pre-Operative Diagnosis: hx polyps, altered bowel function, abdominal pain KEENAN ESCAMILLA DO Nov 01, 2021 13:33
[2021-11-01] MEDS ORDERED: PROPOFOL INJECTION 50 ML IV ONE (14:11)
[2021-11-01 15:05] VITALS: BP 111/58
--- NOTE | 2021-11-01 15:09 | Anesthesia-General Post-Op ---
MAC Patient Condition Mental Status/LOC: Same as Preop Cardiovascular: Satisfactory Nausea/Vomiting: Absent Respiratory: Satisfactory Pain: Controlled Complications: Absent Post Op Complications Complications None Follow Up Care/Instructions Patient Instructions None needed. Anesthesiology Discharge Order Discharge Order Patient is doing well, no complaints, stable vital signs, no apparent adverse anesthesia problems. No complications reported per nursing. LEANNA CAGE DO Nov 01, 2021 15:09
[2021-11-01 15:10] VITALS: BP 114/58
[2021-11-01 15:40] VITALS: BP 132/60
--- NOTE | 2021-11-01 15:46 | Discharge Inst-Simple/Standard ---
Discharge Inst-Standard Patient Instructions/Follow Up Plan of Care/Instructions/FU: 2 weeks sherrell Activity as Tolerated: Yes Discharge Diet: Regular Diet (high fiber) KEENAN ESCAMILLA DO Nov 01, 2021 15:46
--- NOTE | 2021-11-01 15:48 | Progress Note-Post Operative ---
Post-Operative Progess Note Surgeon (s)/Outside Dealer Sales Representative (s) Surgeon KEENAN ESCAMILLA DO Outside Dealer Sales Representative: na Pre-Operative Diagnosis hx polyps, altered bowel function, abdominal pain Post-Operative Diagnosis sigmoid polyps, minimal diverticulosis Procedure & Operative Findings Date of Procedure 11/01/21 Procedure Performed/Findings colonoscopy c snare polypectomy Anesthesia Type per mda Estimated Blood Loss Estimated blood loss (mL): na Specimens/Packing Specimens Removed sigmoid polyp KEENAN ESCAMILLA DO Nov 01, 2021 15:48
[2021-11-01 16:00] VITALS: BP 132/60
--- NOTE | 2021-11-01 22:18 | OPERATIVE REPORT ---
DATE OF SERVICE: 11/01/2021 PREOPERATIVE DIAGNOSES: History of polyps, altered bowel function and abdominal pain. POSTOPERATIVE DIAGNOSIS: Sigmoid polyps and minimal diverticulosis. PROCEDURE: Colonoscopy with snare polypectomy. SURGEON: Keenan Orantes DO ANESTHESIA: Per MDA. ESTIMATED BLOOD LOSS: None. COMPLICATIONS: None. INDICATIONS: The patient is an 86-year-old male with altered bowel function, abdominal pain and some history of polyps. He understands risks and benefits of procedure and wishes to proceed. Consent was signed in the chart. DESCRIPTION OF PROCEDURE: The patient was taken to the endoscopy suite, placed in left lateral recumbent position. Timeout was performed. Digital rectal exam was performed. No palpable polyps, masses or ulcerations. Scope was inserted in the rectum and advanced all the way to cecum with minimal difficulty. Scope was then slowly retracted back. No polyps, masses or ulcerations in the cecum, ascending, transverse, descending colon and sigmoid colon, minimal amount of diverticulosis and also polyp, which snare polypectomy was performed. Scope was then continuously retracted back in the rectum where the scope was retroflexed noting no other pathology. Scope was returned to its normal position, slowly withdrawn until completely removed. The patient tolerated procedure well without complications and taken to recovery room in stable condition. RECOMMENDATIONS: The patient will need colonoscopy on as needed basis. He will follow up in 2 weeks to discuss pathology results. Further recommendations pending. Job ID: [id number] DocumentID: [id number] Dictated Date: 11/01/2021 15:50:52 Recreation Program Coordinator Date: 11/01/2021 22:17:41 Dictated By: KEENAN ORANTES DO
== END 2021-11-01 16:00 | disposition home or self-care (01) ==
LOC: ENDO 12:19
PROVIDERS: ATTEND Surgery
DX: D12.5 Benign neoplasm of sigmoid colon (principal); K57.30 Diverticulosis of large intestine without perforation or abscess without bleeding; E66.01 Morbid (severe) obesity due to excess calories; Z68.35 Body mass index [BMI] 35.0-35.9, adult; Z87.891 Personal history of nicotine dependence
CPT/HCPCS: 88305